=== PATIENT | male | born 1990 | race Caucasian/White ===

== ENCOUNTER 2024-11-04 20:28 | Emergency (ER) | payer MEDICAID ==
[~2024-11-04] VITALS: Ht 185.4 cm; Wt 99.0 kg
[2024-11-04] MEDS ORDERED: ONDA-243 PO (22:07)
[2024-11-04] MEDS: ondansetron 4mg rapidly disintigrating tab PO ONE (22:33)
[2024-11-04 22:34] VITALS: BP 161/106; PULSE 76; RESP 14; TEMP 98.3; O2SAT 97
== END 2024-11-04 22:37 | disposition home or self-care (01) ==
LOC: ER 20:29
DX: S06.0X9A Concussion with loss of consciousness of unspecified duration, initial encounter (principal); S00.03XA Contusion of scalp, initial encounter; Y09 Assault by unspecified means; Y93.89 Activity, other specified; Y92.89 Other specified places as the place of occurrence of the external cause; Y99.8 Other external cause status
CPT/HCPCS: 70450; 70486; 99284